=== PATIENT | male | born 1950 | race Caucasian/White ===

== ENCOUNTER → 2017-01-30 | Outpatient (CLI) | payer OTHER, MEDICARE | LOC: FIMAGING 14:02 | PROVIDERS: ATTEND Family Medicine | DX: Z13.6 Encounter for screening for cardiovascular disorders (principal) ==

== ENCOUNTER 2017-03-19 08:59 | Emergency (ER) | payer OTHER, MEDICARE ==
[2017-03-19 09:04] VITALS: BP 137/87; PULSE 85; RESP 18; TEMP 97.9; O2SAT 96
--- NOTE | 2017-03-19 09:08 | EDPHY ---
H & P Stated Complaint: Dysuria x 5 days;had fever on Sunday;denies flank pain; better today Time Seen by Provider: 03/19/17 09:07 - Personal History Current Tetanus Diphtheria and Acellular Pertussis (TDAP): Yes - Medical/Surgical History Other PMH: mood problems - Social History Smoking Status: Never smoked Constitutional: Initial Vital Signs Temperature (C) 36.6 C 03/19/17 09:00 Heart Rate 85 03/19/17 09:00 Respiratory Rate 18 03/19/17 09:00 Blood Pressure 137/87 H 03/19/17 09:00 O2 Sat (%) 96 03/19/17 09:00 O2 Delivery Mode Room Air Allergies/Adverse Reactions: Penicillins Allergy (Mild, Verified 03/19/17 09:04) Rash Home Medications: Medication Instructions Recorded GABAPENTIN 400 mg PO 03/19/17 Medical Decision Making ED Course/Re-evaluation: CHIEF COMPLAINT: Dysuria HISTORY OF PRESENT ILLNESS: This patient is a 67 year old male who presents to the Emergency Department complaining of dysuria and urinary frequency beginning on of last week. He reports that he first experienced a "cold dave" radiating superiorly to his scalp when urinating with increasing urinary frequency and sensation of urinary urgency. By Sunday, he began to experience intermittent high fever up to 103F as measured by home thermometer. Upon arrival , he continues to complain of persistent mildly burning dysuria. He denies fever or chills today. No history of prostate disease. REVIEW OF SYSTEMS: A 10 point review of systems was performed and is negative with the exception of the elements mentioned in the history of present illness. PHYSICAL EXAM: HR 85, BP 137/87, O2 Sat 96%, RR 18. Temp noted General Appearance: Alert, well hydrated, appropriate, and non-toxic appearing. Head: Atraumatic without scalp tenderness or obvious injury Eyes: Pupils equal, round, reactive to light and accommodation, EOMI, no trauma , no injection. Ears: Clear bilaterally, no perforation, normal landmarks Nose: Atraumatic, no rhinorrhea, clear. Throat: There is no erythema or exudates, no lesions, normal tonsils, mucus membranes moist. Neck: Supple, 2+ carotid upstroke, nontender, no lymphadenopathy. Respiratory: No retractions, no distress, no wheezes, and no accessory muscle use. Lungs are clear to auscultation bilaterally. Cardiovascular: Regular rate and rhythm, no murmurs, rubs, or gallops. Bilateral carotid, radial, dorsalis pedis, and posterior tibial pulses intact. Good capillary refill all extremities. Gastrointestinal: Abdomen is soft, nontender, non-distended, no masses, no rebound, no guarding, no peritoneal signs. Musculoskeletal: Normal active ROM of all extremities, atraumatic. Neurological: Alert, appropriate, and interactive. The patient has normal DTRs and non-focal cranial nerves, motor, sensory, and cerebellar exam. Skin: No rashes, good turgor, no nodules on palpation. Past medical history: Denies Past surgical history: Denies Family history: Non-contributory Social history: Never smoked DIFFERENTIAL DIAGNOSIS: The differential diagnosis for the patient's fever and dysuria included but was not limited to prostatitis and urinary tract infection. MEDICAL DECISION MAKING: This normally healthy 67 year old male presents with 5 days of burning dysuria and 3 days of intermittent high fever with chills. He is afebrile at 36.6C at triage. His exam is benign. Will proceed with UA for suspicion of UTI and possible prostatitis. UA reviewed and is suggestive of UTI. Will start the patient on 750mg QID Levaquin and discharge home in good condition with instructions to follow-up with urology for further evaluation of probably prostatitis. I discussed this plan with the patient who is agreeable to this. - Data Points Laboratory Results: 03/19/17 09:05 Urine Color PORTILLO Urine Appearance TURBID Urine pH 5.0 (5.0-7.5) Ur Specific [place] 1.021 (1.002-1.030) Urine Protein 1+ H (NEGATIVE) Urine Ketones NEGATIVE (NEGATIVE) Urine Blood NEGATIVE (NEGATIVE) Urine Nitrate POSITIVE H (NEGATIVE) Urine Bilirubin NEGATIVE (NEGATIVE) Urine Urobilinogen NEGATIVE EU EU (0.2-1.0) Ur Leukocyte Esterase 3+ H (NEGATIVE) Urine RBC Pending Urine WBC Pending Ur Epithelial Cells Pending Urine Glucose NEGATIVE (NEGATIVE) Departure - Departure Disposition: Home, Routine, Self-Care Clinical Impression: Urinary tract infection Qualifiers: Urinary tract infection type: site unspecified Hematuria presence: without hematuria Qualified Code(s): N39.0 - Urinary tract infection, site not specified Condition: Good Instructions: Urinary Tract Infection in Men (ED) Additional Instructions: 1. Take the full course of Levaquin as prescribed. 2. Take up to 650mg Tylenol every 4-6 as needed for high fever. 3. Follow-up with a urologist for evaluation of possible prostatitis. 4. Return to the Emergency Department if you experience uncontrollable fever, inability to urinate, blood in urine, or for other serious concerns. Referrals: Dimitrios Rodriguez [Primary Care Provider] - As per Instructions Juancarlos Aldridge MD [Medical Doctor] - As per Instructions Report Scribed for: Oniel Draper Report Scribed by: Concepción Nguyen Date of Report: 03/19/17 Time of Report: 09:14
[2017-03-19 09:26] LABS: COLOR AMBER; LEUKOCYTE ESTERASE,URINE 3+ (NEGATIVE); NITRITE,URINE POSITIVE (NEGATIVE)
[2017-03-19 09:57] LABS: BACTERIA 1+ /hpf (NONE SEEN); MUCUS TRACE /lpf (NONE-1+); WBC,URINE 50-182 /hpf (0-3); YEAST PRESENT /hpf (NONE SEEN)
[2017-03-19 09:59] LABS: RBC,URINE NONE SEEN /hpf (0-3)
== END 2017-03-19 10:03 | disposition home or self-care (01) ==
DX: N39.0 Urinary tract infection, site not specified (principal); B96.20 Unspecified Escherichia coli [E. coli] as the cause of diseases classified elsewhere